=== PATIENT | female | born 1945 | race Caucasian/White ===

== ENCOUNTER 2016-10-01 11:41 | Emergency (ER) | payer OTHER ==
[2016-10-01 12:07] LABS: EOS# 0.64 X1000 (0.0-0.7); HEMATOCRIT 45.2 % (37.0-47.0); HEMOGLOBIN 14.9 g/dL (12.0-16.0); IMM GRAN# 0.02 X1000 (0.0-0.04); IMM GRAN% 0.2 % (0.0-0.5); LYMPH# 2.03 X1000 (1.2-3.4); LYMPH% 22.3 % (20.5-51.1); MANUAL DIFF NEEDED? NO; MCH 28.3 PG (27-31); MCV 85.8 FL (81-99); MONO# 0.72 X1000 (0.11-0.59); MONO% 7.9 % (1.7-9.3); MPV 10.6 FL (7.4-10.4); NEUT% 61.6 % (42.2-75.2); PLT 282 X1000 (130-400); RBC 5.27 XMIL (4.2-5.4)
[2016-10-01 12:31] LABS: INR 0.98; PTT 24.7 Seconds (22.0-36.0)
[2016-10-01 12:36] LABS: ALBUMIN 4.1 g/dL (3.5-5.0); CALCIUM 9.8 mg/dL (8.8-10.2); MAGNESIUM 2.1 mg/dL (1.5-2.7); POTASSIUM 4.2 mmol/L (3.5-5.1); TOTAL BILIRUBIN 0.42 mg/dL (0.20-1.00); TOTAL PROTEIN 6.9 g/dL (6.3-8.3)
--- NOTE | 2016-10-01 13:17 | ED EKG INTERP ---
EKG Interpretation - EKG Time of EKG reading by physician:: 11:59 EKG Read and Signed by:: Erich Solorzano EKG Interpretation (*Must complete 3 of following elements*): Abnormal Rate: 58 (nonspecific ST and T wave abnormality ) Rhythm: sinus bradycardia Attestation - Scribe Verification/Attestation Scribe:: Crys Saba Acting as Scribe for:: Erich Solorzano Scribe documention review:: This chart was documented by a scribe and accurately reflects the service the provider performed and the decisions made by the provider.
--- NOTE | 2016-10-01 13:25 | PROVIDER DOCUMENTATION ---
HPI-Musculoskeletal Pain/Inj - GENERAL Chief Complaint: Extremity Pain Stated Complaint: RT ARM/HAND PAIN Time Seen by Provider: 10/01/16 12:01 Source: patient - HX OF PRESENT ILLNESS-MUSKULOSKELTAL Nature of Presenting Problem: Pt is a 71 yof who came to the ED with a cc of right shoulder and arm pain. Pt reports it is a constant pain that started yesterday. Pt reports this pain reminds her of the pain she had in 1997 when she had a heart attack. Pt has a hx of breast cancer in her right breast. Quality of Pain: reports: dull, sharp Severity in ED: mild Onset/Duration: last night Timing: still present Modifying Factors: improves with: movement, palpation Any recent injury?: No Similar Symptoms Previously?: No Recently seen or treated by another doctor?: No Review of Systems - Adult - REVIEW OF SYSTEMS - ADULT Constitutional: denies: chills, fever, weight loss Eyes: reports: no symptoms reported Ears, Nose, Mouth & Throat: reports: no symptoms reported Cardiovascular: denies: chest pain, poor circulation, syncope Respiratory: reports: no symptoms reported Gastrointestinal: reports: no symptoms reported Genitourinary: reports: no symptoms reported Musculoskeletal: reports: other (right shoulder arm pain). denies: frequent leg cramps, joint swelling Integumentary: reports: no symptoms reported Neurological: reports: no symptoms reported Psychiatric: reports: no symptoms reported Endocrine: reports: no symptoms reported Hematologic/Lymphatic: reports: no symptoms reported Allergic/Immunologic: reports: no symptoms reported All Other Systems: Reviewed and Negative Past History - Adult - PAST MEDICAL HISTORY-ADULT Review of Records: reports: Old Records Reviewed, Nursing Assessment Review - PRIOR SURGERIES/PROCEDURES Surgical/Procedure History: reports: other (mastecomy right breast ) - IMMUNIZATION STATUS Childhood Immunizations: See Nurse Assessment Flu Vaccine: See Nurse Assessment Physical Exam-Injury Related - Physical Exam-Injury Related Initial Vital Signs Reviewed: Yes General Appearance: alert, no apparent distress Head, Ears, Nose, Mouth & Throat: normocephalic/atraumatic, moist mucous membranes, normal ENT inspection Neck: non-tender, full range of motion Respiratory: chest non-tender, lungs clear, normal breath sounds Cardiovascular: normal peripheral pulses, regular rate, rhythm, no edema, no gallop, no JVD, no murmur Chest/Breast: other (right breast mastectomy) Abdominal Exam: non tender, soft Extremity: other (shoulder pain down to right arm.) Integumentary: warm/dry Neurologic: grossly normal Psych/Mental Status: normal mood/affect, normal thought content, normal thought process, oriented x 3 Progress - PLAN OF CARE/RESULTS Progress/Plan/Lab Results: Vital Signs - 24 hr 10/01/16 11:46 Temperature 98.1 F Pulse Rate 63 Respiratory 20 Rate Blood Pressure 160/55 O2 Sat by Pulse 100 Oximetry Orders Category Date Time Status CHEST-2 VIEWS [RAD] Stat Exams 10/01/16 11:50 Taken CBC WITH ELECTRONIC DIFF [HEME] Stat Lab 10/01/16 11:53 Completed CK PROFILE [SP CHEM] Stat Lab 10/01/16 11:53 Completed COMPREHENSIVE METABOLIC PANEL [CHEM] Stat Lab 10/01/16 11:53 Completed D-DIMER [CHEM] Stat Lab 10/01/16 11:53 Completed MAGNESIUM [CHEM] Stat Lab 10/01/16 11:53 Completed PRO B-NATRIURETIC PEPTIDE Stat Lab 10/01/16 11:53 Completed PROTIME WITH INR [COAG] Stat Lab 10/01/16 11:53 Completed PTT [COAG] Stat Lab 10/01/16 11:53 Completed TROPONIN T Stat Lab 10/01/16 11:53 Completed EKG [EKG] Stat Ther 10/01/16 11:49 Ordered Laboratory Tests 10/01/16 10/01/16 10/01/16 11:53 11:53 11:53 WBC 9.12 RBC 5.27 Hgb 14.9 Hct 45.2 MCV 85.8 MCH 28.3 MCHC 33.0 RDW Std Deviation 13.8 Plt Count 282 MPV 10.6 H Immature Gran % (Auto) 0.2 Neut % (Auto) 61.6 Lymph % (Auto) 22.3 [place] % (Auto) 7.9 Eos % (Auto) 7.0 Baso % (Auto) 1.0 H Immature Gran # (Auto) 0.02 Neut # (Auto) 5.62 Lymph # (Auto) 2.03 [place] # (Auto) 0.72 H Eos # (Auto) 0.64 Baso # (Auto) 0.09 PT INR PTT (Actin FS) D-Dimer 0.57 H Sodium 139 Potassium 4.2 Chloride 101 Carbon Dioxide 23 L Anion Gap 15 BUN 27 H Creatinine 1.3 H Estimated GFR/1.73 m2 40 BUN/Creatinine Ratio 21 Glucose 98 Calculated Osmolality 283 Calcium 9.8 Magnesium 2.1 Total Bilirubin 0.42 AST 16 ALT 12 Alkaline Phosphatase 53 Creatine Kinase 81 Troponin T [id number] Pept Total Protein 6.9 Albumin 4.1 Globulin 2.8 Albumin/Globulin Ratio 1.5 10/01/16 10/01/16 10/01/16 11:53 11:53 11:53 WBC RBC Hgb Hct MCV MCH MCHC RDW Std Deviation Plt Count MPV Immature Gran % (Auto) Neut % (Auto) Lymph % (Auto) [place] % (Auto) Eos % (Auto) Baso % (Auto) Immature Gran # (Auto) Neut # (Auto) Lymph # (Auto) [place] # (Auto) Eos # (Auto) Baso # (Auto) PT 10.0 INR 0.98 PTT (Actin FS) 24.7 D-Dimer Sodium Potassium Chloride Carbon Dioxide Anion Gap BUN Creatinine Estimated GFR/1.73 m2 BUN/Creatinine Ratio Glucose Calculated Osmolality Calcium Magnesium Total Bilirubin AST ALT Alkaline Phosphatase Creatine Kinase Troponin T < 0.010 [id number] Pept 143 Total Protein Albumin Globulin Albumin/Globulin Ratio - REASSESSMENT Reassessment #1 Time Reassessed: 13:20 (Pt was told she needed her labs rechecked and and evaluation of her RUE. If all comes back negative she is good to go home. ) Status: unchanged - ULTRASOUND (By Radiology) 1 US Study: Upper Ext (negative) Departure - Departure Time of Disposition Order: 15:15 DIAGNOSIS: Arm pain Qualifiers: Laterality: right Qualified Code(s): M79.601 - Pain in right arm Disposition: HOME 01 Certified Medical Emergency: Emergent Condition: Stable Attestation - Scribe Verification/Attestation Scribe:: Crys Saba Acting as Scribe for:: Erich Solorzano Scribe documention review:: This chart was documented by a scribe and accurately reflects the service the provider performed and the decisions made by the provider.
[2016-10-01 15:22] VITALS: BP 157/60
--- NOTE | 2016-10-01 15:55 | Diag Imaging Result Document ---
PROCEDURE NAME: CHEST-2 VIEWS - 10/01/2016 CHEST, 2 VIEWS: COMPARISON: 10/10/2011. FINDINGS: Heart size is normal. There are sternal wires from previous surgery again seen. The lungs appear clear. There is no pleural effusion or pneumothorax seen. There is mild thoracic spondylosis noted. IMPRESSION: No evidence of acute disease.
--- NOTE | 2016-10-03 10:25 | EKG Report ---
Test Performed on : 10/01/2016 11:59:34 AM Test Reason : r arm pain Blood Pressure : / mmHG Vent. Rate : 058 BPM Atrial Rate : 058 BPM P-R Int : 188 ms QRS Dur : 094 ms QT Int : 448 ms P-R-T Axes : 027 032 081 degrees QTc Int : 439 ms Sinus bradycardia. Nonspecific ST and T wave abnormality Abnormal ECG When compared with ECG of 18-SEP-2012 09:56, T wave amplitude has decreased in Anterior leads Unconfirmed Result
--- NOTE | 2016-10-03 10:25 | EKG Report ---
Test Performed on : 10/01/2016 1:59:08 PM Test Reason : arm pain Blood Pressure : / mmHG Vent. Rate : 050 BPM Atrial Rate : 050 BPM P-R Int : 194 ms QRS Dur : 096 ms QT Int : 484 ms P-R-T Axes : 044 026 086 degrees QTc Int : 441 ms Sinus bradycardia. Nonspecific ST abnormality Abnormal ECG When compared with ECG of 01-OCT-2016 11:59, (Unconfirmed) No significant change was found Unconfirmed Result
== END 2016-10-01 15:21 | disposition home or self-care (01) ==
LOC: ED 11:41
DX: M79.601 Pain in right arm (principal); R94.31 Abnormal electrocardiogram [ECG] [EKG]; M25.511 Pain in right shoulder; M79.641 Pain in right hand; I25.2 Old myocardial infarction; Z85.3 Personal history of malignant neoplasm of breast; Z90.11 Acquired absence of right breast and nipple
CPT/HCPCS: 71020; 80053; 82550; 83735; 83880; 84484; 85025; 85379; 85610; 85730; 93005; 93971; 99283